=== PATIENT | male | born 1990 | race African-American/Black ===

== ENCOUNTER 2020-12-25 13:03 | Emergency (ER) | payer OTHER, SELFPAY ==
[2020-12-25] MEDS ORDERED: Ketorolac Tromethamine 60 MG/2 ML VIAL ONE (13:21)
== END 2020-12-25 13:45 | disposition home or self-care (01) ==
LOC: NAV ERS 13:03
DX: M54.5 Low back pain (principal); F17.210 Nicotine dependence, cigarettes, uncomplicated; E66.9 Obesity, unspecified
CPT/HCPCS: 96372; 99406; J1885

== ENCOUNTER 2020-12-26 19:52 | Emergency (ER) | payer SELFPAY ==
[2020-12-26] MEDS ORDERED: Acetaminophen 500 MG TAB ONE ×2 (20:08→20:09)
[2020-12-26] MEDS ORDERED: diphenhydrAMINE 25 MG CAP ONE (20:35)
[2020-12-26] MEDS ORDERED: traMADol HCl 50 MG TAB ONE (20:35)
[2020-12-27 13:54] LABS: SARS-CoV-2 PCR by NAA Not Detected (NotDetected)
== END 2020-12-26 21:05 | disposition home or self-care (01) ==
LOC: NAV ERS 19:52
DX: B34.9 Viral infection, unspecified (principal); Z20.822 Contact with and (suspected) exposure to COVID-19; F17.210 Nicotine dependence, cigarettes, uncomplicated
CPT/HCPCS: 87635; 87804; 99284; Q0163; U0003; U0005

== ENCOUNTER 2021-02-20 21:49 | Emergency (ER) | payer SELFPAY ==
[2021-02-20] MEDS ORDERED: Sulfameth/Trimethoprim DS 800-160mg TAB ONE (22:16)
[2021-02-20] MEDS ORDERED: Acetaminophen 500 MG TAB ONE (22:16)
== END 2021-02-20 22:21 | disposition home or self-care (01) ==
LOC: NAV ERS 21:49
DX: L03.116 Cellulitis of left lower limb (principal); I10 Essential (primary) hypertension; F17.210 Nicotine dependence, cigarettes, uncomplicated
CPT/HCPCS: 99283

== ENCOUNTER 2021-08-13 14:40 | Emergency (ER) | payer SELFPAY | END 2021-08-13 15:55 | disposition home or self-care (01) | LOC: NAV ERS 14:40 | DX: R51.9 Headache, unspecified (principal); I10 Essential (primary) hypertension; F17.210 Nicotine dependence, cigarettes, uncomplicated; Z79.899 Other long term (current) drug therapy | CPT/HCPCS: 70450 ==

== ENCOUNTER 2024-03-10 15:31 | Emergency (ER) | payer SELFPAY ==
[2024-03-10] MEDS ORDERED: Ibuprofen 200 MG TAB ONE (15:55)
[2024-03-10] MEDS ORDERED: Lactated Ringer's 1,000 ML ONE ×2 (15:55→16:49)
[2024-03-10 15:57] LABS: #Basophils 0.1 thou/uL (0.0-0.2); #Eosinphils 0.1 thou/uL (0.0-0.7); #Lymphocytes 2.3 thou/uL (1.20-3.40); #Monocytes 0.6 thou/uL (0.11-0.59); #Neutrophils 6.5 thou/uL (1.40-6.50); %Basophils 0.9 % (0.0-1.0); %Eosinophils 0.7 % (0.0-10.0); %Lymphocytes 23.9 % (21.0-51.0); %Monocytes 6.1 % (0.0-10.0); %Neutrophils 68.4 % (42.0-75.0); Hematocrit 56.1 % (42.0-52.0); Hemoglobin 17.8 g/dL (14.0-18.0); Mean Corpuscular HGB CONC 31.8 g/dL (32.0-36.0); Mean Corpuscular Hemoglobin 28.4 pg (27.0-31.0); Mean Corpuscular Volume 89.4 fl (78.0-98.0); Mean Platelet Volume 8.1 fL (7.4-10.4); Platelet Count 237 10x3/uL (130-400); RBC Distribution Width 11.6 % (11.5-14.5); Red Blood Cell (RBC) Count 6.27 mill/uL (4.70-6.10); White Blood Cell (WBC) Count 9.5 10x3/uL (4.8-10.8)
[2024-03-10 16:38] LABS: ALT (SGPT) 218 U/L (8-55); AST (SGOT) 103 U/L (5-34); Albumin 5.4 g/dL (3.5-5.0); Alkaline Phosphatase 119 U/L (40-110); Anion Gap 24 mmol/L (10-20); BUN (Urea Nitrogen) 21 mg/dL (8.9-20.6); Bilirubin, Total 1.1 mg/dL (0.2-1.2); CK (CPK) 439 U/L (30-200); Calc. Creatinine Clearance 0 mL/min (70-130); Calcium 10.7 mg/dL (7.8-10.44); Carbon Dioxide 22 mmol/L (22-29); Chloride 95 mmol/L (98-107); Estimated GFR 28; Glucose 106 mg/dL (70-105); Lipase 35 U/L (8-78); Potassium 3.9 mmol/L (3.5-5.1); Protein, Total 9.4 g/dL (6.0-8.3); Sodium 137 mmol/L (136-145)
[2024-03-10 17:05] LABS: Bilirubin Small (Negative); Blood, Urine Trace (Negative); Clarity Slightly Cloudy (Clear); Glucose, Urine (Dipstick) Negative (Negative); Ketone, Urine 15 mg/dL (Negative); Leukocyte Negative (Negative); Nitrite Negative (Negative); Protein, Urine (Dipstick) > or equal to 300 mg/dL (Neg-Trace); pH, Urine 5.5 (5.0-9.0)
[2024-03-10 17:08] LABS: Specific Gravity, Urine 1.036 (1.002-1.036)
[2024-03-10 17:14] LABS: Bacteria/HPF Rare-Few HPF (None Seen); CAUTI Indications for Culture Pelvic or flank pain; RBC/HPF 0-3 HPF (0-3)
[2024-03-10 17:15] LABS: Mucous/LPF 1+ LPF (<2+)
[2024-03-10 17:17] LABS: Urine Culture Reflex Yes Yes
== END 2024-03-10 18:27 | disposition home or self-care (01) ==
LOC: NAV ERS 15:31
DX: E86.0 Dehydration (principal); N17.9 Acute kidney failure, unspecified; I10 Essential (primary) hypertension; F17.210 Nicotine dependence, cigarettes, uncomplicated
CPT/HCPCS: 36415; 80053; 81001; 82550; 83690; 85025; 87086; 96360; 96361; J7120

== ENCOUNTER 2024-04-02 14:35 | Emergency (ER) | payer SELFPAY ==
[2024-04-02] MEDS ORDERED: Promethazine HCl 25 MG/ML VIAL ONE (14:54)
[2024-04-02] MEDS ORDERED: Lactated Ringer's 1,000 ML ONE ×3 (14:55→17:04)
[2024-04-02 15:05] LABS: #Basophils 0.1 thou/uL (0.0-0.2); #Eosinphils 0.1 thou/uL (0.0-0.7); #Lymphocytes 3.3 thou/uL (1.20-3.40); #Monocytes 0.5 thou/uL (0.11-0.59); #Neutrophils 7.9 thou/uL (1.40-6.50); %Basophils 1.1 % (0.0-1.0); %Eosinophils 0.5 % (0.0-10.0); %Lymphocytes 27.6 % (21.0-51.0); %Monocytes 4.5 % (0.0-10.0); %Neutrophils 66.3 % (42.0-75.0); Hematocrit 61.9 % (42.0-52.0); Hemoglobin 19.9 g/dL (14.0-18.0); Mean Corpuscular HGB CONC 32.1 g/dL (32.0-36.0); Mean Corpuscular Hemoglobin 28.2 pg (27.0-31.0); Mean Corpuscular Volume 88.1 fl (78.0-98.0); Mean Platelet Volume 7.6 fL (7.4-10.4); Platelet Count 337 10x3/uL (130-400); RBC Distribution Width 11.6 % (11.5-14.5); Red Blood Cell (RBC) Count 7.03 mill/uL (4.70-6.10)
[2024-04-02 15:17] LABS: Phosphorus 5.5 mg/dL (2.3-4.7)
[2024-04-02 15:22] LABS: Troponin I 0.012 ng/mL (< 0.028)
[2024-04-02 15:23] LABS: ALT (SGPT) 228 U/L (8-55); AST (SGOT) 108 U/L (5-34); Albumin Greater than 6.2 g/dL (3.5-5.0); Alkaline Phosphatase 137 U/L (40-110); Anion Gap 30 mmol/L (10-20); BUN (Urea Nitrogen) 29 mg/dL (8.9-20.6); Bilirubin, Total 0.9 mg/dL (0.2-1.2); CK (CPK) 648 U/L (30-200); Calc. Creatinine Clearance 0 mL/min (70-130); Calcium 12.7 mg/dL (7.8-10.44); Carbon Dioxide 17 mmol/L (22-29); Chloride 95 mmol/L (98-107); Estimated GFR 21; Glucose 154 mg/dL (70-105); Lipase 65 U/L (8-78); Magnesium 3.2 mg/dL (1.6-2.6); Potassium 3.8 mmol/L (3.5-5.1); Protein, Total 11.7 g/dL (6.0-8.3); Sodium 138 mmol/L (136-145)
[2024-04-02 16:50] LABS: Bilirubin Moderate (Negative); Blood, Urine Moderate (Negative); Clarity Clear (Clear); Glucose, Urine (Dipstick) Negative (Negative); Ketone, Urine Trace mg/dL (Negative); Leukocyte Negative (Negative); Nitrite Negative (Negative); Protein, Urine (Dipstick) > or equal to 300 mg/dL (Neg-Trace); pH, Urine 5.5 (5.0-9.0)
[2024-04-02 16:52] LABS: Specific Gravity, Urine 1.028 (1.002-1.036)
[2024-04-02 16:56] LABS: Bacteria/HPF Rare-Few HPF (None Seen); CAUTI Indications for Culture Pelvic or flank pain; WBC/HPF 0-3 HPF (0-3)
[2024-04-02 16:57] LABS: ALT (SGPT) 189 U/L (8-55); AST (SGOT) 92 U/L (5-34); Albumin 5.4 g/dL (3.5-5.0); Alkaline Phosphatase 108 U/L (40-110); Anion Gap 22 mmol/L (10-20); BUN (Urea Nitrogen) 29 mg/dL (8.9-20.6); Bilirubin, Total 0.7 mg/dL (0.2-1.2); Calc. Creatinine Clearance 0 mL/min (70-130); Calcium 11.3 mg/dL (7.8-10.44); Carbon Dioxide 22 mmol/L (22-29); Chloride 97 mmol/L (98-107); Estimated GFR 27; Glucose 85 mg/dL (70-105); Potassium 3.7 mmol/L (3.5-5.1); Protein, Total 9.4 g/dL (6.0-8.3); Sodium 137 mmol/L (136-145)
[2024-04-02 16:58] LABS: Urine Culture Reflex No No
[2024-04-02 17:01] LABS: Amphetamine Not Detected (NotDetected); Barbiturates Screen Not Detected (NotDetected); Benzodiazepine Screen Not Detected (NotDetected); Cocaine Metabolite Screen Not Detected (NotDetected); Methadone Not Detected (NotDetected); Methamphetamine Not Detected (NotDetected); Opiate Screen Not Detected (NotDetected); Oxycodone Screen Not Detected (NotDetected); Phencyclidine (PCP) Not Detected (NotDetected); THC/Cannabinoid Screen Detected (NotDetected); Tricyclic Screen Not Detected (NotDetected)
[2024-04-02 18:18] LABS: Bilirubin Small (Negative); Blood, Urine Trace (Negative); Clarity Clear (Clear); Glucose, Urine (Dipstick) Negative (Negative); Ketone, Urine Trace mg/dL (Negative); Leukocyte Negative (Negative); Nitrite Negative (Negative); Protein, Urine (Dipstick) 100 mg/dL (Neg-Trace); pH, Urine 5.5 (5.0-9.0)
[2024-04-02 18:20] LABS: CAUTI Indications for Culture Pelvic or flank pain; RBC/HPF 0-3 HPF (0-3); Squamous Epithelial 0-3 HPF (0-3); WBC/HPF 0-3 HPF (0-3)
[2024-04-02 18:22] LABS: Urine Culture Reflex No No
[2024-04-02 18:24] LABS: Hemoglobin 16.4 g/dL (14.0-18.0); Manual Diff?? NO; Mean Corpuscular HGB CONC 31.6 g/dL (32.0-36.0); Mean Corpuscular Hemoglobin 27.9 pg (27.0-31.0); Mean Corpuscular Volume 88.5 fl (78.0-98.0); Mean Platelet Volume 7.4 fL (7.4-10.4); Platelet Count 241 10x3/uL (130-400); RBC Distribution Width 11.9 % (11.5-14.5); Red Blood Cell (RBC) Count 5.87 mill/uL (4.70-6.10); White Blood Cell (WBC) Count 13.8 10x3/uL (4.8-10.8)
[2024-04-02 18:25] LABS: #Lymphocytes 1.6 thou/uL (1.20-3.40); #Monocytes 0.7 thou/uL (0.11-0.59); #Neutrophils 11.2 thou/uL (1.40-6.50); %Basophils 0.4 % (0.0-1.0); %Eosinophils 0.1 % (0.0-10.0); %Lymphocytes 11.9 % (21.0-51.0); %Monocytes 5.1 % (0.0-10.0); %Neutrophils 82.8 % (42.0-75.0)
[2024-04-02 18:30] LABS: Anion Gap 20 mmol/L (10-20); BUN (Urea Nitrogen) 28 mg/dL (8.9-20.6); Calc. Creatinine Clearance 0 mL/min (70-130); Calcium 10.6 mg/dL (7.8-10.44); Carbon Dioxide 23 mmol/L (22-29); Chloride 96 mmol/L (98-107); Estimated GFR 33; Glucose 107 mg/dL (70-105); Potassium 4.1 mmol/L (3.5-5.1); Sodium 135 mmol/L (136-145)
== END 2024-04-02 19:07 | disposition home or self-care (01) ==
LOC: NAV ERS 14:35
DX: E86.0 Dehydration (principal); N18.9 Chronic kidney disease, unspecified; I12.9 Hypertensive chronic kidney disease with stage 1 through stage 4 chronic kidney disease, or unspecified chronic kidney disease; R74.01 Elevation of levels of liver transaminase levels; F17.210 Nicotine dependence, cigarettes, uncomplicated
CPT/HCPCS: 36415; 71046; 80053; 80306; 81001; 82550; 83690; 83735; 84100; 84484; 85025; 93005; 96361; 96365; J2550; J7120